=== PATIENT | male | born 1955 | race Caucasian/White ===

== ENCOUNTER 2019-01-27 11:54 | Day surgery (SDC) | payer BC ==
[2019-01-27] MEDS ORDERED: LIDOCAINE 2% MDV (20MG/ML) 20ML VIAL IV ONE (11:55)
[2019-01-27] MEDS ORDERED: PROPOFOL 10 MG/ML VIAL IV ONE (11:55)
--- NOTE | 2019-01-28 07:12 | Operative Note ---
OPERATION: COLONOSCOPY with cold forceps polypectomy. PREOPERATIVE DIAGNOSIS: Colon cancer screening, average risk. POSTOPERATIVE DIAGNOSIS: Sigmoid polyp, otherwise normal exam. PROCEDURE: After informed consent was obtained from the patient, he was placed in the left lateral decubitus position in the endoscopy suite, sedated and monitored by the department of anesthesia. Digital rectal exam was unremarkable. A well-lubricated [id number] colonoscope was inserted into the rectum and advanced to the cecum. The cecum, cecal bulb, ileocecal valve, appendiceal orifice were examined and were unremarkable. Preparation quality was good to excellent. The ascending colon, transverse colon, and descending colon were free of inflammatory changes, mass lesions, or polyps. The sigmoid colon revealed a diminutive polyp removed with a cold forceps. The remainder of the sigmoid colon and rectum were unrevealing. J-turn views of the anorectum were unremarkable. The endoscope was straightened, the rectal ampulla deflated, and the endoscope was removed. RECOMMENDATIONS: I would suggest the patient resume his medications and diet. He will require repeat exam in 5-10 years pending tissue histology. As always, thank you for allowing me to participate in the healthcare of your patients. [id number]
== END 2019-01-27 13:28 | disposition home or self-care (01) ==
LOC: HOP 11:54
PROVIDERS: ATTEND Internal Medicine Gastroenterology
DX: Z12.11 Encounter for screening for malignant neoplasm of colon (principal); K63.5 Polyp of colon; I10 Essential (primary) hypertension; E78.00 Pure hypercholesterolemia, unspecified